=== PATIENT | female | born 1975 | race Caucasian/White ===

== ENCOUNTER 2016-05-09 09:55 | Outpatient (CLI) | payer BC | END 2016-05-09 09:56 | disposition home or self-care (01) | DX: R20.9 Unspecified disturbances of skin sensation (principal) ==

== ENCOUNTER 2023-06-08 08:00 | Outpatient (CLI) | payer BC ==
[2023-06-08 15:09] LABS: SARS-CoV-2 -RESP PCR PANEL NOT DETECTED
[2023-06-08 15:10] LABS: INFLUENZA A H1 2009- RESP PCR DETECTED; INFLUENZA B - RESP PCR PANEL NOT DETECTED; RSV- RESP PCR PANEL NOT DETECTED
== END 2023-06-08 23:59 | disposition home or self-care (01) ==
LOC: LAB.N 08:00
PROVIDERS: ATTEND Nurse Practitioner
DX: J06.9 Acute upper respiratory infection, unspecified (principal)
CPT/HCPCS: 87637